=== PATIENT | female | born 1995 | race Caucasian/White ===

== ENCOUNTER → 2022-01-30 | Outpatient (CLI) | payer BC | LOC: LAB 13:29 | DX: O99.282 Endocrine, nutritional and metabolic diseases complicating pregnancy, second trimester (principal); Z3A.00 Weeks of gestation of pregnancy not specified | CPT/HCPCS: 36415; 84439; 84443 ==

== ENCOUNTER → 2022-02-13 | Outpatient (CLI) | payer BC ==
[2022-02-17 16:11] LABS: PARVOVIRUS B19, IGM 0.1 index (0.0-0.8)
== END ==
LOC: LAB 14:39
PROVIDERS: Obstetrics & Gynecology
DX: Z53.9 Procedure and treatment not carried out, unspecified reason (principal)

== ENCOUNTER → 2022-04-10 | Outpatient (CLI) | payer BC ==
[2022-04-10 05:46] LABS: URINE TOTAL PROTEIN 6 mg/dl
== END ==
LOC: LAB 05:08
PROVIDERS: Obstetrics & Gynecology
DX: O10.919 Unspecified pre-existing hypertension complicating pregnancy, unspecified trimester (principal); Z3A.00 Weeks of gestation of pregnancy not specified
CPT/HCPCS: 84156

== ENCOUNTER 2022-05-14 07:35 | Outpatient (CLI) | payer BC | END 2022-05-14 08:58 | disposition home or self-care (01) | LOC: GENOP 07:35 | DX: O47.03 False labor before 37 completed weeks of gestation, third trimester (principal); Z3A.33 33 weeks gestation of pregnancy | CPT/HCPCS: 81001; 82731; G0463 ==